=== PATIENT | female | born 1975 | race Caucasian/White ===

== ENCOUNTER 2021-02-24 10:26 | Emergency (ER) | payer BC ==
[~2021-02-24] VITALS: Ht 165.1 cm; Wt 100.0 kg
[~2021-02-24 10:26] MED LIST: METF-911 PO
[2021-02-24] MEDS ORDERED: INSLAN SQ (10:35)
[2021-02-24] MEDS ORDERED: INSU100V SQ (10:36)
[2021-02-24] MEDS ORDERED: LISI-809 PO (10:36)
[2021-02-24] MEDS ORDERED: PIOG45TA4 PO (10:37)
[2021-02-24] MEDS ORDERED: CEFX2I IM (10:37)
[2021-02-24 11:27] VITALS: BP 145/87
== END 2021-02-24 11:30 | disposition home or self-care (01) ==
LOC: EMS 10:34
DX: T82.838A Hemorrhage due to vascular prosthetic devices, implants and grafts, initial encounter (principal); E11.9 Type 2 diabetes mellitus without complications; I10 Essential (primary) hypertension; Z87.39 Personal history of other diseases of the musculoskeletal system and connective tissue; Z79.4 Long term (current) use of insulin; Z79.899 Other long term (current) drug therapy; Y84.6 Urinary catheterization as the cause of abnormal reaction of the patient, or of later complication, without mention of misadventure at the time of the procedure
CPT/HCPCS: 82962; 99282